=== PATIENT | female | born 1990 | race Caucasian/White ===

== ENCOUNTER 2016-12-28 13:28 | Emergency (ER) | payer SELFPAY ==
[2016-12-28 13:13] LABS: INFLUENZA A NEG (NEG)
[2016-12-28 13:14] LABS: INFLUENZA B POS (NEG)
[~2016-12-28 13:28] MED LIST: ABX; ALBUTEROL17 GM INH; AMOXICILLIN PO; BCP PO; BENADRYL25 M1 PO; BENADRYL25 MG; BIRTH CONTROL PILL PO; CIPRO PO; CLEOCIN PO; FAMOTIDINE PO; KEFLEX PO; KETOPROFEN PO; LORTAB 7.5-5001 TAB PO; MEDROL DOSEPAK4 MG DOB; MEDROL PO; MOTRIN600 MG PO; NO MEDICATIONS; NORCO 5/325 TAB1 TAB PO; PAIN PILL; PREDNISONE PO; TRAMADOL HCL50 M1 PO; VICODIN 5/1 TAB 5/50 PO; VICODIN PO; ZITHROMAX PO; [UNRECOGNIZED DRUG - REMARK]
== END 2016-12-28 13:31 | disposition home or self-care (01) ==
LOC: CFTX 13:28
DX: J10.1 Influenza due to other identified influenza virus with other respiratory manifestations (principal); F17.210 Nicotine dependence, cigarettes, uncomplicated; Z88.0 Allergy status to penicillin; Z88.2 Allergy status to sulfonamides; Z88.1 Allergy status to other antibiotic agents; Z79.899 Other long term (current) drug therapy
CPT/HCPCS: 87804; 99283